=== PATIENT | male | born 1960 | race Caucasian/White ===

== ENCOUNTER 2019-03-15 09:05 | Observation (INO) | payer BC ==
[~2019-03-15] VITALS: Ht 190.5 cm; Wt 171.0 kg
[~2019-03-15 09:05] MED LIST: COLC0.6C PO; NAPR-1154 PO
[2019-03-15] MEDS ORDERED: aspirin 81mg tab.chew PO ONE (09:25)
[2019-03-15] MEDS ORDERED: nitroGLYCERIN 0.4mg SUBLingual tab SL PRN ×3 (09:25→11:20)
[2019-03-15 10:11] LABS: BASOPHILS % (AUTO) 0.8 % (0-1); EOSINOPHILS # (AUTO) 0.1 X10'3 (0-0.9); EOSINOPHILS % (AUTO) 2.3 % (0-6); HEMATOCRIT 44.5 % (42.0-52.0); HEMOGLOBIN 15.8 g/dl (14.0-17.9); LYMPHOCYTES # (AUTO) 1.4 X10'3 (1.1-4.8); LYMPHOCYTES % (AUTO) 26.1 % (21-51); MEAN CORPUSCULAR HEMOGLOBIN 31.4 PG (27.0-31.0); MEAN CORPUSCULAR HGB CONC 35.4 g/dL (33.0-36.5); MEAN CORPUSCULAR VOLUME 88.8 FL (78-98); MEAN PLATELET VOLUME 6.4 FL (7.4-10.4); MONOCYTES # (AUTO) 0.5 X10'3 (0-0.9); MONOCYTES % (AUTO) 8.7 % (2-12); NEUTROPHILS # (AUTO) 3.2 X10'3 (1.8-7.7); NEUTROPHILS % (AUTO) 62.1 % (42-75); PLATELET COUNT 241 X10'3 (140-440); RED BLOOD COUNT 5.02 X10'6 (4.70-6.10); RED CELL DISTRIBUTION WIDTH 13.3 % (11.5-14.5); WHITE BLOOD COUNT 5.2 X10'3 (4.5-11.0)
[2019-03-15 10:27] LABS: ALANINE AMINOTRANSFERASE 71 U/L (12-78); ALBUMIN 4.1 G/DL (3.4-5.0); ALBUMIN/GLOBULIN RATIO 1.3 (1.1-1.5); ALKALINE PHOSPHATASE 107 IU/L (46-116); ANION GAP 4 (8-16); ASPARTATE AMINO TRANSFERASE 44 U/L (10-37); BILIRUBIN,TOTAL 0.4 MG/DL (0.1-1.0); BLOOD UREA NITROGEN 13 MG/DL (7-18); CALCIUM 9.1 MG/DL (8.5-10.1); CHLORIDE 102 MMOL/L (99-107); CREATININE 1.18 MG/DL (0.60-1.10); GLUCOSE 98 MG/DL (70-104); POTASSIUM 3.1 MMOL/L (3.5-5.1); SODIUM 138 MMOL/L (135-145); TOTAL CARBON DIOXIDE 31.7 MMOL/L (24-32); TOTAL PROTEIN 7.2 G/DL (6.4-8.2); eGFR 63 ML/MIN
[2019-03-15] MEDS ORDERED: magnesium hydroxide 30ml (MOM) UD suspension PO PRN (11:20)
[2019-03-15] MEDS ORDERED: HYDROcodone/acetaminophen 5mg/325mg tablet PO PRN (11:20)
[2019-03-15] MEDS ORDERED: acetaminophen 650mg rectal suppository RC PRN (11:20)
[2019-03-15] MEDS ORDERED: aminophylline 250mg/10ml inj. IV PRN (11:20)
[2019-03-15] MEDS ORDERED: metoprolol tartrate 1mg/ml inj IV PRN (11:20)
[2019-03-15] MEDS ORDERED: morphine 2 MG/ML inj. syringe IV PRN ×2 (11:20)
[2019-03-15] MEDS ORDERED: mag hydrox/Alum hydrox/simeth 30ml oral suspension PO PRN (11:20)
[2019-03-15] MEDS ORDERED: diphenhydrAMINE 25mg capsule PO PRN (11:20)
[2019-03-15] MEDS ORDERED: magnesium Cl slow-release 64mg tablet PO PRN (11:20)
[2019-03-15] MEDS ORDERED: HYDROcodone/acetaminophen 10/325mg tab PO PRN (11:20)
[2019-03-15] MEDS ORDERED: potassium CL 10mEq/100ml bag 100 ML IV PRN ×2 (11:20)
[2019-03-15] MEDS ORDERED: magnesium 4gm in 100ml NS 100 ML IV PRN (11:20)
[2019-03-15] MEDS ORDERED: regadenoson 0.4mg/5ml syringe IV PRN (11:20)
[2019-03-15] MEDS ORDERED: bisacodyl 10mg suppository rectal RC PRN (11:20)
[2019-03-15] MEDS ORDERED: acetaminophen 325mg tablet PO PRN ×2 (11:20)
[2019-03-15] MEDS ORDERED: magnesium 2GM in 50ml NS 50 ML IV PRN (11:20)
[2019-03-15] MEDS ORDERED: potassium Cl 20 mEq SR tablet PO PRN (11:20)
[2019-03-15] MEDS ORDERED: ondansetron/PF 4mg/2ml inj IV PRN (11:20)
[2019-03-15] MEDS: normal saline 1000ml 1,000 ML IV SCH (11:46)
--- NOTE | 2019-03-15 12:17 | NUR ---
ATTEMPTED TO CALL REPORT NURSE IS ON THE PHONE WITH SOMEONE ELSE WILL TRY AGAIN
--- NOTE | 2019-03-15 12:20 | NUR ---
Received report from Titi AUGUSTIN. Patient will be admitted to room 3024A.
[2019-03-15 12:24] LABS: CHOL/HDL RATIO 8.8 (0.00-4.99); CHOLESTEROL 281 MG/DL (0-200); HDL CHOLESTEROL 32 MG/DL (35-60); LDL CHOLESTEROL 163 MG/DL (50-100); TRIGLYCERIDES 431 MG/DL (20-135)
[2019-03-15 12:27] LABS: HEMOGLOBIN A1C 5.8 % (4.5-6.2)
--- NOTE | 2019-03-15 12:30 | NUR ---
Patient admitted to room 3024A. Pt oriented to room, vital signs taken. T 97.4, O2 97% room air, HR 55, BP 137/72, Pain 4/10 (residual in left arm and chest from earlier).Pt says no current chest pain "like before." MRSA nasal swab taken, patient has no complaints at this time
[2019-03-15] MEDS ORDERED: TRIA1TAB5 PO (12:31)
[2019-03-15] MEDS ORDERED: FLUO-1 PO (12:31)
[2019-03-15] MEDS ORDERED: HYDR-3972 PO (12:31)
[2019-03-15] MEDS ORDERED: LEVO175T62 PO (12:31)
[2019-03-15] MEDS ORDERED: OMEP-297 PO (12:31)
[2019-03-15] MEDS ORDERED: BUPR300T54 PO (12:31)
[2019-03-15 12:47] VITALS: BP 137/72
--- NOTE | 2019-03-15 14:54 | NUR ---
Pt taken off floor for berna scan
[2019-03-15 15:00] VITALS: BP 118/62
[2019-03-15] MEDS: potassium Cl 20 mEq SR tablet PO PRN ×2 (15:32→20:36)
[2019-03-15] MEDS: atorvastatin 20mg tablet PO SCH (17:22)
--- NOTE | 2019-03-15 18:21 | NUR ---
Problems reprioritized. Patient report given, questions answered & plan of care reviewed with Dwayne RN. Pt stable at time of shift change
--- NOTE | 2019-03-15 18:30 | NUR ---
Patient in room PCU 3024. I have received report from Judith Cabral RN and had the opportunity to ask questions and assume patient care.
[2019-03-15 19:00] VITALS: BP 130/66
[2019-03-15] MEDS: K and/or MAG REPLACEMENT MC SCH (20:00)
[2019-03-15] MEDS: omega-3 acid ethyl esters 1GM capsule PO SCH (20:36)
[2019-03-15] MEDS: buPROPion SR 150mg tablet PO SCH (20:36)
[2019-03-15] MEDS: heparin, porcine 5000 units/ml vial SQ SCH (20:37)
[2019-03-15 22:42] VITALS: BP 135/88
[2019-03-16] VITALS (10 sets, daily range): BP systolic 109–136; BP diastolic 70–83
[2019-03-16] MEDS: normal saline 1000ml 1,000 ML IV SCH ×2 (01:40→07:18)
--- NOTE | 2019-03-16 06:20 | NUR ---
Patient in room PCU 3024b. I have received report from DEMETRIA Rice and had the opportunity to ask questions and assume patient care.
[2019-03-16 06:24] LABS: BASOPHILS # (AUTO) 0.1 X10'3 (0-0.2); EOSINOPHILS # (AUTO) 0.2 X10'3 (0-0.9); EOSINOPHILS % (AUTO) 3.7 % (0-6); HEMATOCRIT 43.1 % (42.0-52.0); HEMOGLOBIN 15.1 g/dl (14.0-17.9); LYMPHOCYTES # (AUTO) 1.5 X10'3 (1.1-4.8); MEAN CORPUSCULAR HEMOGLOBIN 31.7 PG (27.0-31.0); MEAN CORPUSCULAR VOLUME 90.6 FL (78-98); MEAN PLATELET VOLUME 6.4 FL (7.4-10.4); MONOCYTES # (AUTO) 0.4 X10'3 (0-0.9); MONOCYTES % (AUTO) 8.5 % (2-12); NEUTROPHILS # (AUTO) 2.7 X10'3 (1.8-7.7); NEUTROPHILS % (AUTO) 55.8 % (42-75); PLATELET COUNT 217 X10'3 (140-440); RED BLOOD COUNT 4.75 X10'6 (4.70-6.10); RED CELL DISTRIBUTION WIDTH 13.5 % (11.5-14.5); WHITE BLOOD COUNT 4.9 X10'3 (4.5-11.0)
--- NOTE | 2019-03-16 06:38 | NUR ---
Problems reprioritized. Patient report given, questions answered & plan of care reviewed with Marie Hernandez RN.
[2019-03-16 07:01] LABS: ALANINE AMINOTRANSFERASE 74 U/L (12-78); ALBUMIN 3.7 G/DL (3.4-5.0); ALBUMIN/GLOBULIN RATIO 1.3 (1.1-1.5); ALKALINE PHOSPHATASE 91 IU/L (46-116); ANION GAP 6 (8-16); ASPARTATE AMINO TRANSFERASE 43 U/L (10-37); BILIRUBIN,TOTAL 0.5 MG/DL (0.1-1.0); BLOOD UREA NITROGEN 10 MG/DL (7-18); BUN/CREATININE RATIO 7.9 (5.4-32.0); CALCIUM 8.9 MG/DL (8.5-10.1); CHLORIDE 107 MMOL/L (99-107); CHOL/HDL RATIO 9.6 (0.00-4.99); CHOLESTEROL 268 MG/DL (0-200); CREATININE 1.26 MG/DL (0.60-1.10); GLUCOSE 104 MG/DL (70-104); HDL CHOLESTEROL 28 MG/DL (35-60); LDL CHOLESTEROL 160 MG/DL (50-100); MAGNESIUM 1.8 MG/DL (1.5-2.4); PHOSPHORUS 2.6 MG/DL (2.3-4.5); POTASSIUM 3.5 MMOL/L (3.5-5.1); SODIUM 142 MMOL/L (135-145); TOTAL CARBON DIOXIDE 29.4 MMOL/L (24-32); TOTAL PROTEIN 6.5 G/DL (6.4-8.2); TRIGLYCERIDES 440 MG/DL (20-135); eGFR 58 ML/MIN
[2019-03-16] MEDS ORDERED: pantoprazole 40mg Tablet.DR PO SCH (07:30)
[2019-03-16] MEDS ORDERED: FLUoxetine 20mg capsule PO SCH (08:00)
[2019-03-16] MEDS: K and/or MAG REPLACEMENT MC SCH (08:00)
[2019-03-16] MEDS ORDERED: triamterene/HCTZ 37.5/25mg tablet PO SCH (08:00)
[2019-03-16] MEDS ORDERED: levoTHYROXINE 175mcg tablet PO SCH (08:00)
[2019-03-16] MEDS ORDERED: fenofibrate 145mg tablet PO SCH (08:30)
[2019-03-16] MEDS ORDERED: aspirin 325mg tablet PO SCH (08:30)
--- NOTE | 2019-03-16 10:15 | NUR ---
Pt returned from [facility] at this time in stable condition. neurodiagnostic technician notified of patient's return to unit.
[2019-03-16] MEDS: atorvastatin 20mg tablet PO SCH (10:34)
[2019-03-16] MEDS: buPROPion SR 150mg tablet PO SCH (10:34)
[2019-03-16] MEDS: heparin, porcine 5000 units/ml vial SQ SCH (10:35)
[2019-03-16] MEDS: omega-3 acid ethyl esters 1GM capsule PO SCH (10:47)
--- NOTE | 2019-03-16 11:13 | NUR ---
Page sent to Dr. Ayala regarding clarification on Aspirin order. PAGER ID: [phone] MESSAGE: [phone] Michele Rawls: need clarification on Aspirin order. Do you want 325mg or 81mg? Thanks Marie martell [phone]
--- NOTE | 2019-03-16 11:43 | NUR ---
Dr. Ayala at bedside, new order to d/c Aspirin 325mg and start Aspirin 81mg PO daily
--- NOTE | 2019-03-16 12:17 | NUR ---
Page sent to Dr. Ayala regarding berna scan results. PAGER ID: [phone] MESSAGE: [phone] [id number] Asya Rawls: Patients berna scan resulted. It was normal. Thanks, Marie [id number]
[2019-03-16] MEDS ORDERED: OMEG1CAP PO (12:24)
[2019-03-16] MEDS ORDERED: FENO145T25 PO (12:24)
[2019-03-16] MEDS ORDERED: ATOR20TA66 PO (12:24)
[2019-03-16] MEDS ORDERED: ASPI-1071 PO (12:24)
--- NOTE | 2019-03-16 13:45 | NUR ---
Patient stable for discharge per MD. Educations and discharge instructions given to patient. All questions and concerns addressed. New medications faxed to Yaneli Kowalski in [facility]. Tele monitor removed and returned to telegraph office telephone clerk. PIV d/c'd, catheter intact. Patient transported off unit via wheelchair by staff to private vehicle.
[2019-03-17] MEDS ORDERED: aspirin 81mg tablet.DR PO SCH (08:00)
[2019-03-17] MEDS ORDERED: buPROPion SR 150mg tablet PO SCH (08:00)
== END 2019-03-16 13:45 | disposition home or self-care (01) ==
LOC: ER 09:06 → ED HOLD 11:18 → EDBEDREQ 11:46 → PCU 3S 12:30
PROVIDERS: ADMIT Family Medicine; ATTEND Family Medicine
DX: R07.89 Other chest pain (principal); E78.5 Hyperlipidemia, unspecified; E78.1 Pure hyperglyceridemia; K21.9 Gastro-esophageal reflux disease without esophagitis; E87.6 Hypokalemia; M17.0 Bilateral primary osteoarthritis of knee; I10 Essential (primary) hypertension; E03.9 Hypothyroidism, unspecified; G47.33 Obstructive sleep apnea (adult) (pediatric); E78.00 Pure hypercholesterolemia, unspecified; F32.9 Major depressive disorder, single episode, unspecified; F41.9 Anxiety disorder, unspecified; E66.01 Morbid (severe) obesity due to excess calories; Z87.891 Personal history of nicotine dependence; Z96.651 Presence of right artificial knee joint; Z99.89 Dependence on other enabling machines and devices; Z79.890 Hormone replacement therapy; Z79.899 Other long term (current) drug therapy; Z68.42 Body mass index [BMI] 45.0-49.9, adult
CPT/HCPCS: 36415; 71045; 78451; 80053; 80061; 83036; 83735; 83880; 84100; 84443; 84484; 85025; 87081; 93005; 93017; 93306; 96372; 99284; A9500; G0378; J0280; J1644; J2785; J7030

== ENCOUNTER 2019-11-12 08:33 | Day surgery (SDC) | payer BC ==
[~2019-11-12] VITALS: Ht 190.5 cm; Wt 139.2 kg
[~2019-11-12 08:33] MED LIST changes: +ASPI-1071 PO; +ATOR20TA66 PO; -COLC0.6C PO; +FENO145T25 PO; +FLUO-1 PO; +HYDR-3972 PO; +LEVO175T62 PO; -NAPR-1154 PO; +OMEG1CAP PO; +OMEP20CA15 PO; +TRIA1TAB5 PO; +[UNRECOGNIZED DRUG - CODE] PO
[2019-11-12] MEDS ORDERED: normal saline 1000ml 1,000 ML IV SCH (08:55)
[2019-11-12 09:17] VITALS: BP 134/78
[2019-11-12] MEDS ORDERED: NIA500ERT PO (09:40)
[2019-11-12 10:22] LABS: BASOPHILS # (AUTO) 0.1 X10'3 (0-0.2); BASOPHILS % (AUTO) 1.2 % (0-1); EOSINOPHILS # (AUTO) 0.2 X10'3 (0-0.9); EOSINOPHILS % (AUTO) 2.5 % (0-6); HEMATOCRIT 45.8 % (42.0-52.0); HEMOGLOBIN 15.6 g/dl (14.0-17.9); LYMPHOCYTES # (AUTO) 1.6 X10'3 (1.1-4.8); LYMPHOCYTES % (AUTO) 27.2 % (21-51); MEAN CORPUSCULAR HEMOGLOBIN 31.2 PG (27.0-31.0); MEAN CORPUSCULAR HGB CONC 34.1 g/dL (33.0-36.5); MEAN CORPUSCULAR VOLUME 91.5 FL (78-98); MEAN PLATELET VOLUME 6.8 FL (7.4-10.4); MONOCYTES # (AUTO) 0.5 X10'3 (0-0.9); NEUTROPHILS # (AUTO) 3.6 X10'3 (1.8-7.7); NEUTROPHILS % (AUTO) 60.1 % (42-75); PLATELET COUNT 256 X10'3 (140-440); RED BLOOD COUNT 5.01 X10'6 (4.70-6.10); RED CELL DISTRIBUTION WIDTH 13.3 % (11.5-14.5); WHITE BLOOD COUNT 6.1 X10'3 (4.5-11.0)
[2019-11-12 10:35] LABS: ALBUMIN 4.1 G/DL (3.4-5.0); ANION GAP 11 (8-16); BLOOD UREA NITROGEN 14 MG/DL (7-18); BUN/CREATININE RATIO 12.4 (5.4-32.0); CALCIUM 9.3 MG/DL (8.5-10.1); CHLORIDE 104 MMOL/L (99-107); CREATININE 1.13 MG/DL (0.60-1.10); GLUCOSE 96 MG/DL (70-104); POTASSIUM 3.5 MMOL/L (3.5-5.1); SODIUM 140 MMOL/L (135-145); TOTAL CARBON DIOXIDE 25.3 MMOL/L (24-32); eGFR 66 ML/MIN
[2019-11-12] MEDS ORDERED: iohexol 300mg/ml 100ml inj. ONE (11:21)
== END 2019-11-12 12:02 | disposition home or self-care (01) ==
LOC: SSTAY O 08:33
PROVIDERS: ATTEND Radiology Diagnostic Radiology
DX: R16.0 Hepatomegaly, not elsewhere classified (principal); J98.11 Atelectasis; R91.1 Solitary pulmonary nodule; Z11.59 Encounter for screening for other viral diseases; N20.0 Calculus of kidney; G89.29 Other chronic pain; E66.01 Morbid (severe) obesity due to excess calories; Z68.38 Body mass index [BMI] 38.0-38.9, adult; I10 Essential (primary) hypertension; E03.9 Hypothyroidism, unspecified; G47.33 Obstructive sleep apnea (adult) (pediatric); E78.5 Hyperlipidemia, unspecified; E78.1 Pure hyperglyceridemia; Z98.890 Other specified postprocedural states; Z96.659 Presence of unspecified artificial knee joint; Z87.891 Personal history of nicotine dependence; Z79.899 Other long term (current) drug therapy; Z80.42 Family history of malignant neoplasm of prostate; Z80.1 Family history of malignant neoplasm of trachea, bronchus and lung
CPT/HCPCS: 36415; 74160; 80048; 85025; 87635; Q9967; 74170